=== PATIENT | female | born 1965 | race African-American/Black ===

== ENCOUNTER 2020-02-28 15:57 | Outpatient (CLI) | payer OTHER, SELFPAY ==
--- NOTE | ~2020-02-28 | US_ITS ---
US thyroid INDICATION: Hypothyroidism. Previous benign biopsy of left thyroid mass. TECHNIQUE: Real-time sonographic images of the thyroid gland were obtained. COMPARISON: 04/24/2019 FINDINGS: The right thyroid lobe measures 4.8 x 2.2 x 1.7 cm. The left thyroid lobe measures 4.6 x 2 .3 x 1.3 cm. Stable 2.6 cm right thyroid cyst. Multiple left thyroid mass is reidentified with the la rgest dominant mass measuring 3.2 x 1.6 x 2 cm which is not significantly changed from prior examinat ions allowing for differences of technique. No new masses are identified. Normal vascularity. IMPRESSION: 1. Stable multinodular goiter. No significant change to dominant left thyroid mass which was previou sly biopsy proven benign. Reviewed, dictated and finalized at location A. IMPRESSION: 1. Stable multinodular goiter. No significant change to dominant left thyroid mass which was previously biopsy proven benign.
== END 2020-02-28 15:58 | disposition home or self-care (01) ==
PROVIDERS: PCP Internal Medicine; Visit Provider Internal Medicine Endocrinology, Diabetes & Metabolism
DX: E03.9 Hypothyroidism, unspecified (principal); E04.2 Nontoxic multinodular goiter
CPT/HCPCS: 76536

== ENCOUNTER 2021-06-17 12:31 | Outpatient (CLI) | payer OTHER, SELFPAY ==
--- NOTE | ~2021-06-17 | US_ITS ---
EXAMINATION: US thyroid EXAM DATE: 06/17/2021 13:11 INDICATION: Thyroid nodule. TECHNIQUE: Multiple grayscale and Doppler images of the thyroid were obtained (by a technologist who performed the scan) and subsequently reviewed. Individual nodules and recommendations may be reporte d in accordance with TI-RADS system as designated by the 2017 ACR White Paper TI-RADS committee. Comp rushson is made to prior examination from 02/28/2020. FINDINGS: The right thyroid lobe measures 4.9 x 1.9 x 2.1 cm, the left measuring 4.6 x 2.0 x 2.0 cm. Diffusely increased thyroid vascularity. Dimensions are moderately enlarged. Again there are bilateral scattere d thyroid nodules, largest on the right is cystic, size and appearance unchanged. On the left the largest thyroid nodule measures 3.1 x 1.3 x 2.5 cm, solid (2 points), hypoechoic (2 p oints), wider than tall, smooth well defined margin, without echogenic foci, category TR4 for this no dule, not significantly changed accounting for differences in technique and reportedly this nodule wa s previously biopsied with benign results. The other left thyroid lobe category 4 nodule is subcentim eter in size. IMPRESSION: Stable hypervascular multinodular goiter. Reviewed, dictated and finalized at location B. RANCE VERIFICATION CLERK
== END 2021-06-17 12:32 | disposition home or self-care (01) ==
LOC: ANHIMG 12:36
PROVIDERS: PCP Internal Medicine; Visit Provider Internal Medicine Endocrinology, Diabetes & Metabolism
DX: E04.2 Nontoxic multinodular goiter (principal)
CPT/HCPCS: 76536

== ENCOUNTER 2021-10-06 13:26 | Outpatient (CLI) | payer OTHER, SELFPAY ==
--- NOTE | ~2021-10-06 | US_ITS ---
EXAMINATION: US FNA w image guidance DATE: 10/06/2021 14:06 INDICATION: Nontoxic single thyroid nodule. TECHNIQUE: The procedure and its benefits and risks were discussed with the patient. Risks specifically discusse d included bleeding. The patient verbalized understanding of the risks and agreed to proceed. The nec k was prepped and draped in the usual sterile manner. 1% lidocaine was used for local anesthesia. 6 passes were made with a 25G needle into the lesion under ultrasound guidance. There were no immedia te complications. FINDINGS: Grayscale ultrasound images demonstrate needles advanced into a 3.0 cm nodule in left thyroid lobe fo r biopsy. IMPRESSION: 1. Ultrasound-guided fine needle aspiration of a left thyroid nodule. Reviewed, dictated and finalized at location A.
== END 2021-10-06 13:27 | disposition home or self-care (01) ==
LOC: ANHIMG 13:27
PROVIDERS: PCP Internal Medicine; Visit Provider Internal Medicine Endocrinology, Diabetes & Metabolism
DX: E04.1 Nontoxic single thyroid nodule (principal)
CPT/HCPCS: 10005; 88173; 88305

== ENCOUNTER 2021-11-03 07:59 | Outpatient (CLI) | payer OTHER, SELFPAY ==
--- NOTE | ~2021-11-03 | DEXA_ITS ---
Bone Density Report Name: JOSE OROSCO Age: 56 Sex: Female Ethnicity: White Date of : 1965 Indication: postmenopausal; screening for osteoporosis; prior fracture; asthma or emphysema; hysterectomy; Referring Provider: APRIL, NICOLE Agee Study: Bone densitometry was performed. Exam Date: November 03, 2021 Accession number: [id number] Bone Density: Region BMD T-score Z-score Classification AP Spine(L1, L4) 1.247 1.9 3.0 Normal Femoral Neck (Left) 0.755 -0.8 0.3 Normal Total Hip (Left) 0.928 -0.1 0.6 Normal Femoral Neck (Right) 0.840 -0.1 1.0 Normal Total Hip (Right) 0.979 0.3 1.0 Normal Total Hip Mean 0.954 0.1 0.8 Normal World Health Organization criteria for BMD impression classify patients as: Normal (T-score at or above -1.0), Osteopenia (T-score between -1.0 and -2.5), or Osteoporosis (T-score at or below -2.5). 10-year Fracture Risk: FRAX not reported because: All T-scores for Spine Total, Hip Total, Femoral Neck at or above -1.0 Clinical Information Provided by Patient: Has had a low trauma fracture Has used the following medications: Vitamin D Has the following medical conditions: Asthma or Emphysema, Hysterectomy Patient maximum height was 61 Menopause Age: 47 No regular weight bearing exercise Drinks caffeinated beverages Onset of menses at age 10 Number of children 1 Impression: The patient has normal bone mass. The patient has risk factors, including: previous fracture. Discussion: BONE DENSITY IS ABOVE THE MINIMUM DESIRABLE LEVEL AT ALL SKELETAL SITES TESTED. This patient?s bone mineral density is above the minimum desirable level (T-score -1.0 or better) at all sites measured. The patient should follow a healthful lifestyle (good nutrition with adequate calcium and vitamin D, and appropriate weight-bearing exercise). Follow-Up: Consider repeating this study in 5 years or sooner if there is some new clinical indication. Reported by: SUSAN on 11/03/2021 8:24:00 AM. Reviewed, dictated and finalized at location A. NEMO
== END 2021-11-03 08:00 | disposition home or self-care (01) ==
PROVIDERS: PCP Internal Medicine; Visit Provider Internal Medicine Endocrinology, Diabetes & Metabolism
DX: Z78.0 Asymptomatic menopausal state (principal)
CPT/HCPCS: 77080

== ENCOUNTER 2022-06-15 14:55 | Outpatient (CLI) | payer OTHER, SELFPAY ==
--- NOTE | ~2022-06-15 | US_ITS ---
Thyroid ultrasound. Clinical History: Nontoxic single thyroid nodule Findings: Real-time sonography of the thyroid gland was performed. The right lobe measures 5.8 x 2.9 x 2.6 cm. The left lobe measures 4.6 x 1.8 x 2.5 cm. The isthmus is 7 mm in AP diameter. There is a 3.1 x 2.1 x 2.5 cm cystic nodule in the right thyroid lobe, with focal mural calcification or small nodule, and a single thin septation. There is a 3.0 x 1.7 x 2.3 cm solid nodule in the left thyroid lobe, with relatively smooth border, m ildly hypoechoic overall with extensive internal vascular flow. The lesion is wider than tall. Impression: 3.0 x 1.7 x 2.3 cm solid left thyroid lobe nodule as detailed above, consistent with TR-4 lesion. FNA is recommended to establish a histologic diagnosis. Cystic nodule in the right thyroid lobe measuring 3.1 cm in maximum diameter, compatible with TR-2 le adenike, benign. Reviewed, dictated and finalized at location [] NG MILL OPERATOR Impression: 3.0 x 1.7 x 2.3 cm solid left thyroid lobe nodule as detailed above, consistent with TR-4 lesion. FNA is recommended to establish a histologic diagnosis. Cystic nodule in the right thyroid lobe measuring 3.1 cm in maximum diameter, c ompatible with TR-2 lesion, benign.
== END 2022-06-15 14:56 | disposition home or self-care (01) ==
PROVIDERS: PCP Internal Medicine; Visit Provider Internal Medicine Endocrinology, Diabetes & Metabolism
DX: E04.1 Nontoxic single thyroid nodule (principal)
CPT/HCPCS: 76536